=== PATIENT | male | born 1985 | race Caucasian/White ===

== ENCOUNTER 2017-10-07 10:11 | Inpatient (IN) | payer OTHER, SELFPAY ==
[2017-10-07 10:23] VITALS: BMI 21.2
[2017-10-07] MEDS ORDERED: Sodium Chloride 0.9% 1,000 ML IV ONE (11:02)
[2017-10-07] MEDS ORDERED: Belladonna-Phenobarbital PO STA (11:02)
[2017-10-07] MEDS ORDERED: Aluminum Hydroxide/Magnesium Hydroxide Susp (30 mL) PO STA (11:02)
[2017-10-07] MEDS ORDERED: Iohexol 240 (50 ml) PO STA (11:02)
[2017-10-07 11:14] LABS: SQUAMOUS EPITHIAL 1 /hpf (0-5); URINE BACTERIA RARE (<OCC); URINE BILIRUBIN NEGATIVE (NEGATIVE); URINE BLOOD 1+ (NEGATIVE); URINE CLARITY Hazy (Clear); URINE COLOR Yellow (YELLOW); URINE GLUCOSE (UA) NORMAL (Normal); URINE NITRATE NEGATIVE (NEGATIVE); URINE PROTEIN 1+ mg/dL (NEGATIVE)
[2017-10-07 11:16] LABS: URINE LEUKOCYTE ESTERASE 1+ Leu/uL (Negative)
--- NOTE | 2017-10-07 11:16 | C.PDOC ---
History Of Present Illness 31yo male with history of HIV, PTSD and depression, presents to ED with complaints of abdominal pain for the past week which has been worsening. Patient states he has been having loose stools which appears to be blood tinged. He also reports a tactile fever and states he had episodes of delirium last week which has now resolved. Patient also states he has suicidal ideation but no plan at this moment; reports he attempted to strangle himself with a belt last week. Of note, patient has not taken his PTSD and depression medication for the past month as the program ([facility]) he got them through was not able to provide him with more. Time Seen by Provider: 10/07/17 10:54 Chief Complaint (Nursing): Abdominal Pain History Per: Patient History/Exam Limitations: no limitations Onset/Duration Of Symptoms: Days, Persistent Current Symptoms Are (Timing): Still Present Pain Scale Rating Of: 10 (07/18) Location Of Pain/Discomfort: Diffuse Quality Of Discomfort: "Pain" Associated Symptoms: Diarrhea Past Medical History Reviewed: Historical Data, Nursing Documentation, Vital Signs Vital Signs: Last Vital Signs Temp 99.1 F 10/07/17 14:23 Pulse 103 H 10/07/17 14:23 Resp 18 10/07/17 14:23 BP 105/64 10/07/17 14:23 Pulse Ox 100 10/07/17 14:23 - Medical History PMH: Anxiety, Depression, HIV, Post Traumatic Stress Disorder Denies: Diabetes, Hepatitis, HTN, Seizures, Sexually Transmitted Disease Surgical History: No Surg Hx - [facility] GROUP PSYCHOTHERAPY (07/02/17) INDIVIDUAL PSYCHOTHERAPY, COGNITIVE-BEHAVIORAL (07/02/17) INDIVIDUAL PSYCHOTHERAPY, SUPPORTIVE (07/02/17) Family History: States: No Known Family Hx - Social History Hx Alcohol Use: No Hx Substance Use: Yes (methamphetamine) - Immunization History Hx Tetanus Toxoid Vaccination: No Hx Influenza Vaccination: No Hx Pneumococcal Vaccination: No Review Of Systems Except As Marked, All Systems Reviewed And Found Negative. Constitutional: Positive for: Fever (tactile) Gastrointestinal: Positive for: Abdominal Pain, Diarrhea, Hematochezia. Negative for: Nausea, Vomiting Psych: Positive for: Suicidal ideation Physical Exam - Physical Exam Appears: Non-toxic, Other (uncomfortable) Neck: Supple Chest: Symmetrical Cardiovascular: Rhythm Regular Respiratory: Normal Breath Sounds Gastrointestinal/Abdominal: Soft, Tenderness (diffuse), Guarding Extremity: Normal ROM Neurological/Psych: Oriented x3, Normal Speech, Normal Cognition ED Course And Treatment - Laboratory Results Result Diagrams: 10/07/17 11:35 10/07/17 12:06 O2 Sat by Pulse Oximetry: 100 (RA) Pulse Ox Interpretation: Normal Medical Decision Making Medical Decision Making: Impression: Abdominal pain x 2 weeks Plan: -- Labs -- CT Abdomen w/ PO & IV contrast -- Maalox 30ml PO -- 1 tab PO -- Pepcid 20mg IVP -- Toradol 30mg IVP -- Morphine 2mg IVP -- IV Fluids Time: 1158 Crisis evaluation ordered Time: 1300 XR Abdomen IMPRESSION: No infiltrate. Stool retention.. No evidence of mechanical bowel obstruction. Disposition Counseled Patient/Family Regarding: Studies Performed, Diagnosis - Disposition Disposition: HOSPITALIZED Disposition Time: 15:03 Condition: GUARDED Forms: [facility] (Russian) - Clinical Impression Clinical Impression: Colitis, Suicidal ideations, HIV disease - Scribe Statement The provider has reviewed the documentation as recorded by the Adelita Davis Provider Attestation: All medical record entries made by the Adelita were at my direction and personally dictated by me. I have reviewed the chart and agree that the record accurately reflects my personal performance of the history, physical exam, medical decision making, and the department course for this patient. I have also personally directed, reviewed, and agree with the discharge instructions and disposition. Decision To Admit - Pt Status Changed To: Hospital Disposition Of: Inpatient - Admit Certification Admit to Inpatient:: After my assessment, the patient will require hospitalization for at least two midnights. This is because of the severity of symptoms shown, intensity of services needed, and/or the medical risk in this patient being treated as an outpatient. - InPatient: Physician Admission Certification:: colitis, needs IV anbx, also SI - . Bed Request Type: Regular Patient Diagnosis: Colitis, Suicidal ideations, HIV disease
[2017-10-07 11:25] LABS: BARBITURATES, UR NEGATIVE (NEGATIVE); BENZODIAZEPINES, UR NEGATIVE (NEGATIVE); OPIATES, UR NEGATIVE (NEGATIVE); PHENCYCLIDINE, UR NEGATIVE (NEGATIVE)
[2017-10-07 11:46] LABS: BASO % 0.3 % (0.0-2.0); EOS % 0.2 % (0.0-4.0); LYMPH # 1.3 K/uL (1.0-4.3); LYMPH % 8.8 % (20.0-40.0); MEAN CELL VOLUME 91.9 fL (80.0-94.0); MEAN CORPUSCULAR HEMOGLOBIN 31.7 pg (27.0-31.0); MEAN CORPUSCULAR HGB CONC 34.5 g/dL (33.0-37.0); MEAN PLATELET VOLUME 9.4 fL (7.2-11.7); MONO # 1.4 K/uL (0.0-0.8); MONO % 10.2 % (0.0-10.0); NEUT # 11.4 K/uL (1.8-7.0); NEUT % 80.5 % (50.0-75.0); PLATELET COUNT 309 K/uL (130-400); RBC 4.74 Mil/uL (4.40-5.90); RED CELL DISTRIBUTION WIDTH 12.5 % (11.5-14.5)
[2017-10-07 11:50] LABS: WHITE BLOOD COUNT 14.2 K/uL (4.8-10.8)
[2017-10-07] MEDS ORDERED: Aluminum Hydroxide/Magnesium Hydroxide Susp (30 mL) ONE (11:59)
[2017-10-07] MEDS ORDERED: Iohexol 240 (50 ml) ONE (11:59)
[2017-10-07] MEDS ORDERED: Sodium Chloride 0.9% 1,000 ML ONE ×2 (11:59→18:27)
[2017-10-07] MEDS ORDERED: Morphine 4 MG/ML VIAL ONE (11:59)
[2017-10-07] MEDS ORDERED: Belladonna-Phenobarbital ONE (12:01)
[2017-10-07 12:25] LABS: ALBUMIN 3.6 g/dL (3.5-5.0); ALT/SGPT 15 U/L (21-72); AST/SGOT 20 U/L (17-59); BLOOD UREA NITROGEN 9 mg/dL (9-20); CALCIUM 7.8 mg/dl (8.6-10.4); GFR AFRICAN-AMERICAN > 60; GFR NON-AFRICAN AMERICAN > 60; LIPASE 111 U/L (23-300)
[2017-10-07 12:27] LABS: BANDS 2 % (0-2); LYMPHOCYTE 8 % (20-40); MONOCYTE 6 % (0-10); NEUTROPHIL 84 % (50-75); PLATELET ESTIMATE NORMAL (NORMAL); TOTAL CELLS COUNTED 100
--- NOTE | 2017-10-07 13:02 | RAD ---
PROCEDURE: Radiographs of the chest and abdomen (obstructive series) HISTORY: abd pain COMPARISON: No prior. TECHNIQUE: AP radiograph of the chest, with upright and supine radiographs of the abdomen. FINDINGS: CHEST: Lungs: Clear. Cardiovascular: Normal size heart. No pulmonary vascular congestion. Pleura: No pleural fluid. No pneumothorax. Other findings: None. ABDOMEN AND PELVIS: Bowel: Stool retention.. No evidence of mechanical obstruction. Free air: None. Bones: Lumbosacral level transitional elements with incomplete closure of apparently S1 Other findings: None. IMPRESSION: No infiltrate. Stool retention.. No evidence of mechanical bowel obstruction.
[2017-10-07] MEDS ORDERED: Iodixanol 320 MG/ML 100 ML BOTTLE IV ONE (13:33)
--- NOTE | 2017-10-07 14:51 | CT ---
PROCEDURE: CT Abdomen and Pelvis with oral and IV contrast. HISTORY: abd pain COMPARISON: Obstructive series performed 10/07/17 TECHNIQUE: Contiguous axial images of the abdomen and pelvis. Oral and IV contrast was administered. Coronal and Sagittal reformats generated and reviewed. Contrast dose: 100 cc Visipaque 320 Radiation dose: Total exam DLP = 213.12 MGy-cm. This CT exam was performed using one or more of the following dose reduction techniques: Automated exposure control, adjustment of the mA and/or kV according to patient size, and/or use of iterative reconstruction technique. FINDINGS: LOWER THORAX: No visible consolidation, pleural effusion, or pneumothorax. LIVER: Unremarkable. GALLBLADDER AND BILE DUCTS: Unremarkable. PANCREAS: Unremarkable. SPLEEN: Unremarkable. ADRENALS: Unremarkable. KIDNEYS AND URETERS: The kidneys enhance symmetrically. No hydronephrosis or obstructing renal calculus. 7 mm too small to characterize right renal hypodensity, statistically likely a cyst. BLADDER: The urinary bladder appears unremarkable. REPRODUCTIVE: Unremarkable. APPENDIX: The presumed appendix appears within normal limits of caliber. No secondary signs of acute appendicitis. BOWEL: The stomach is nondistended. No evidence of small-bowel obstruction. Marked wall thickening of the rectosigmoid colon worrisome for colitis (i.e. infectious, inflammatory, ischemic). PERITONEUM: No significant free fluid. No definite free air. LYMPH NODES: No bulky lymphadenopathy identified. VASCULATURE: No aortic aneurysm. BONES: No acute osseous abnormality is detected. OTHER FINDINGS: None. IMPRESSION: Marked wall thickening of the rectosigmoid colon worrisome for colitis (i.e. infectious, inflammatory, ischemic). 7 mm too small to characterize right renal hypodensity, statistically likely a cyst.
[2017-10-07] MEDS ORDERED: metroNIDAZOLE IV 500 mg/100 ml 500 MG/100 ML BAG IVPB ONE (14:54)
[2017-10-07] MEDS ORDERED: cefTRIAXone IV 1 gm in Dextros 50 ML IVPB ONE (14:54)
[2017-10-07] MEDS ORDERED: Ciprofloxacin 400mg/200ml D5W 400 MG/200 ML BAG IVPB STA (14:54)
[2017-10-07] MEDS ORDERED: Ciprofloxacin 400mg/200ml D5W 400 MG/200 ML BAG IVPB ONE (15:28)
[2017-10-07] MEDS ORDERED: metroNIDAZOLE IV 500 mg/100 ml 500 MG/100 ML BAG ONE (16:40)
--- NOTE | 2017-10-07 18:15 | CP.PCM.HP ---
History of Present Illness - History of Present Illness History of Present Illness: Patient was seen and examined at approximately 4:30 PM in the ED Bed 4. Patient is currently a Full code status at this time. His emergency contact is his sister Isabelle Loya. She can be reached at [phone] CC: abdominal pain with diarrhea HPI: 31 year old male with past medical history significant for HIV (diagnosed in 2013), Hx of suicidal ideations with a plan, PTSD, Depression and anxiety presents with concerns of abdominal pain which he has been experiencing for the past 7 days. Patient states that the pain has been accompanied with watery diarrhea as well. He states that the stool is yellowish-brown in nature. He states that yesterday, he noticed what appeared to be blood in the toilet bowl. He was concerned that his diarrhea symptoms did not hillary, and thus he came in to be seen. Patient states that he has been eating foods at home. He states the foods have been mostly oily, but he has been able to tolerate a diet. He specifically denies eating any new foods or taking any new medications in the days leading up to the beginning of his symptoms. He admits to a subjective fever on one occasion. He denies nausea, vomiting, chest pain, constipation, headaches, urinary urgency, dysuria, hematuria, urinary hesitancy or paresthesias, recent travel outside the country or recent exposure to sick contacts at this time. Of additional note, patient expressed wanting to harm himself. Patient states that he does not have a plan at the moment. He has a history of attempting suicide by siding down 15 floors of a banister on one attempt. He mentioned trying to choke himself on another attempt. PMHx- see above PSHx- denies Fam Hx- Mom has high cholesterol Meds- On Stribild ( antiretrovirals) ; Was previously taking Zoloft and gabapentin through the live[facility] in treatment center that he was attending Social- smokes 10 cigarettes a day for 11 years ( not interested in quitting); admits to using methamphetamines; rare alcohol use Allergies- NKDA PMD- None Present on Admission - Present on Admission Any Indicators Present on Admission: No Review of Systems - Constitutional Constitutional: Fever. absent: Headache - EENT Eyes: absent: Blurred Vision, Change in Vision Ears: absent: Ear Discharge, Ear Pain Nose/Mouth/Throat: absent: Nasal Congestion - Cardiovascular Cardiovascular: absent: Chest Pain, Diaphoresis, Dyspnea - Respiratory Respiratory: absent: Cough, Dyspnea - Gastrointestinal Gastrointestinal: Diarrhea, Hematochezia. absent: Bloating, Nausea, Vomiting - Genitourinary Genitourinary: absent: Change in Urinary Stream, Difficulty Urinating, Dysuria, Hematuria, Urinary Frequency, Urinary Urgency - Musculoskeletal Musculoskeletal: absent: Back Pain, Numbness - Integumentary Integumentary: absent: Change in Hair, Dry Skin - Neurological Neurological: absent: Abnormal Hearing, Dizziness, Tingling, Weakness - Psychiatric Psychiatric: Depression, Suicidal Ideation - Hematologic/Lymphatic Hematologic: absent: Easy Bleeding, Easy Bruising Past Patient History - Past Social History Smoking Status: Heavy Smoker > 10 Cigarettes Daily Alcohol: Occasional Drugs: Methamphetamine Home Situation {Lives}: With Family - CARDIAC Hx Hypertension: No - PULMONARY Hx Tuberculosis: No - NEUROLOGICAL Hx Seizures: No - HEMATOLOGICAL/ONCOLOGICAL Hx Human Immunodeficiency Virus (HIV): Yes - GENITOURINARY/GYNECOLOGICAL Hx Sexually Transmitted Disorders: No - PSYCHIATRIC Hx Anxiety: Yes Hx Depression: Yes Hx Post Traumatic Stress Disorder: Yes Hx Substance Use: Yes (methamphetamine) - SURGICAL HISTORY Hx Surgeries: No - ANESTHESIA Hx Anesthesia: No Meds Allergies/Adverse Reactions: Allergies Allergy/AdvReac Type Severity Reaction Status Date / Time No Known Allergies Allergy Verified 10/07/17 10:21 Physical Exam - Constitutional Appears: Non-toxic, No Acute Distress, Younger Than Stated Age (appears younger ) - Head Exam Head Exam: ATRAUMATIC, NORMAL INSPECTION, NORMOCEPHALIC - Eye Exam Eye Exam: EOMI, Normal appearance, PERRL Pupil Exam: PERRL - ENT Exam ENT Exam: Mucous Membranes Moist - Neck Exam Neck exam: Positive for: Full Rom - Respiratory Exam Respiratory Exam: Clear to Auscultation Bilateral, NORMAL BREATHING PATTERN. absent: Wheezes - Cardiovascular Exam Cardiovascular Exam: REGULAR RHYTHM, +S1, +S2. absent: Tachycardia - GI/Abdominal Exam GI & Abdominal Exam: Normal Bowel Sounds, Soft, Tenderness (diffuse lower quadrants). absent: Distended, Firm, Guarding - Rectal Exam Rectal Exam: Deferred Additional comments: Patient declined at this time. - Extremities Exam Extremities exam: Positive for: full ROM, normal capillary refill - Back Exam Back exam: FULL ROM, NORMAL INSPECTION - Neurological Exam Neurological exam: Alert, CN II-XII Intact, Oriented x3 - Psychiatric Exam Psychiatric exam: Normal Affect, Normal Mood, Suicidal Ideation - Skin Skin Exam: Dry, Intact, Normal Color, Warm Results - Vital Signs Recent Vital Signs: Last Vital Signs Temp 99.5 F 10/07/17 17:37 Pulse 95 H 10/07/17 17:37 Resp 18 10/07/17 17:37 BP 100/61 10/07/17 17:37 Pulse Ox 98 10/07/17 17:37 - Labs Result Diagrams: 10/07/17 11:35 10/07/17 12:06 Labs: Laboratory Results - last 24 hr 10/07/17 10/07/17 10/07/17 10:50 10:50 11:35 WBC 14.2 H D RBC 4.74 Hgb 15.0 Hct 43.6 MCV 91.9 MCH 31.7 H MCHC 34.5 RDW 12.5 Plt Count 309 MPV 9.4 Neut % (Auto) 80.5 H Lymph % (Auto) 8.8 L Crowley % (Auto) 10.2 H Eos % (Auto) 0.2 Baso % (Auto) 0.3 Neut # 11.4 H Lymph # 1.3 Crowley # 1.4 H Eos # 0.0 Baso # 0.0 Neutrophils % (Manual) 84 H Band Neutrophils % 2 Lymphocytes % (Manual) 8 L Monocytes % (Manual) 6 Platelet Estimate Normal RBC Morphology Normal Sodium Potassium Chloride Carbon Dioxide Anion Gap BUN Creatinine Est GFR ( Amer) Est GFR (Non-Af Amer) Random Glucose Calcium Total Bilirubin AST ALT Alkaline Phosphatase Total Protein Albumin Globulin Albumin/Globulin Ratio Lipase Urine Color Yellow Urine Clarity Hazy Urine pH 5.0 Ur Specific [place] 1.029 Urine Protein 1+ H Urine Glucose (UA) Normal Urine Ketones Negative Urine Blood 1+ H Urine Nitrate Negative Urine Bilirubin Negative Urine Urobilinogen 2.0 Ur Leukocyte Esterase 1+ H Urine WBC (Auto) 22 H Urine RBC (Auto) 21 H Ur Squamous Epith Cells 1 Urine Bacteria Rare Urine Opiates Screen Negative Urine Methadone Screen Negative Ur Barbiturates Screen Negative Ur Phencyclidine Scrn Negative Ur Amphetamines Screen Positive H U Benzodiazepines Scrn Negative U Oth Cocaine Metabols Negative U Cannabinoids Screen Negative Alcohol, Quantitative 10/07/17 12:06 WBC RBC Hgb Hct MCV MCH MCHC RDW Plt Count MPV Neut % (Auto) Lymph % (Auto) Crow[place] % (Auto) Eos % (Auto) Baso % (Auto) Neut # Lymph # [place] # Eos # Baso # Neutrophils % (Manual) Band Neutrophils % Lymphocytes % (Manual) Monocytes % (Manual) Platelet Estimate RBC Morphology Sodium 132 Potassium 4.2 Chloride 99 Carbon Dioxide 25 Anion Gap 13 BUN 9 Creatinine 0.8 Est GFR ( Amer) > 60 Est GFR (Non-Af Amer) > 60 Random Glucose 101 Calcium 7.8 L Total Bilirubin 0.4 AST 20 ALT 15 L D Alkaline Phosphatase 65 Total Protein 7.3 Albumin 3.6 Globulin 3.7 Albumin/Globulin Ratio 1.0 Lipase 111 Urine Color Urine Clarity Urine pH Ur Specific [place] Urine Protein Urine Glucose (UA) Urine Ketones Urine Blood Urine Nitrate Urine Bilirubin Urine Urobilinogen Ur Leukocyte Esterase Urine WBC (Auto) Urine RBC (Auto) Ur Squamous Epith Cells Urine Bacteria Urine Opiates Screen Urine Methadone Screen Ur Barbiturates Screen Ur Phencyclidine Scrn Ur Amphetamines Screen U Benzodiazepines Scrn U Oth Cocaine Metabols U Cannabinoids Screen Alcohol, Quantitative < 10 Assessment & Plan (1) Colitis Assessment and Plan: Fever of 100.9 on admission ( Tylenol PRN) Leukocytosis 14.2 CT imaging - marked wall thickening of rectosigmoid colon indicative of colitis Likely due to presumed infectious diarrhea On Cipro and Flagyl On Florastor F/U stool studies: Cryptosporidium, Giardia, Stool electrolytes; AM labs NPO, N/S @ 100 mls/hr Consult to be placed to GI Pain Meds administered in ER. Will start Toradol 15 mg Q6 PRN Cont to monitor Status: Acute (2) Diarrhea Assessment and Plan: F/U studies as mentioned above Hematochezia- F/U stool occult Patient declined a rectal exam at this time. He will reconsider in the morning. F/U Status: Acute (3) HIV disease Assessment and Plan: F/U CD4 counts Charlene states that he has had blood work testing in June of 2017 and was told that his counts were stable Will start on Emtricitabine/Tenofovir F/U Status: Chronic (4) Suicidal ideation Assessment and Plan: 1:1 sitter F/U Psych recommendations Counseled at length Status: Acute (5) Methamphetamine use disorder, severe Assessment and Plan: UDS positve Counseling at this time F/U Psych recommendations. Patient may need further outpatient management services once medically cleared Status: Acute (6) Prophylactic measure Assessment and Plan: PPI 40 mg PO daily SCDs at this time Status: Acute
[2017-10-07] MEDS ORDERED: Sodium Chloride 0.9% 0 ML IV ONE (18:27)
[2017-10-07] MEDS: Sodium Chloride 0.9% 1,000 ML IV SCH (18:29)
[2017-10-08] MEDS: metroNIDAZOLE IV 250mg/50 ml 250 MG/50 ML BAG IVPB SCH ×3 (01:00→16:46)
[2017-10-08] MEDS: Sodium Chloride 0.9% 1,000 ML IV SCH ×3 (04:30→16:44)
[2017-10-08] MEDS: Ciprofloxacin 400mg/200ml D5W 400 MG/200 ML BAG IVPB SCH ×2 (06:00→18:43)
--- NOTE | 2017-10-08 07:52 | CP.PCM.PN ---
<Candi Warner - Last Filed: 10/08/17 13:30> Subjective - Date & Time of Evaluation Date of Evaluation: 10/08/17 Time of Evaluation: 07:52 - Subjective Subjective: Medicine Progress Note for Dr. Huitron's service Patient was seen and examined at bedside in no acute distress. Patient laying comfortably in bed. He reports no longer having abdominal pain or diarrhea. His last episode of diarrhea was in the ED. Patient says he is "feeling much better ", whoever still feeling depressed. Patient is requesting to eat. Patient denies chest pain, abdominal pain, nausea, vomiting, fevers, headaches, back pain, leg pain, hallucinations, and SI/HI. Objective - Vital Signs/Intake and Output Vital Signs (last 24 hours): Temp Pulse Resp BP Pulse Ox 98.5 F 20 L 100 H 98/59 L 99 10/08/17 07:28 10/08/17 07:28 10/08/17 07:28 10/08/17 07:28 10/08/17 02:52 Intake and Output: 10/08/17 10/08/17 06:59 18:59 Intake Total 800 Balance 800 - Medications Medications: Current Medications Acetaminophen (Tylenol 325mg Tab) 650 mg PO Q6 PRN PRN Reason: Fever >100.4 F Emtricitabine/Tenofovir (Truvada 200 Mg-300 Mg) 1 tab PO DAILY [facility] Sodium Chloride (Sodium Chloride 0.9%) 1,000 mls @ 100 mls/hr IV .Q10H [facility] Last Admin: 10/08/17 04:30 Dose: 100 mls/hr Ciprofloxacin (Cipro 400mg/200ml Dsw) 400 mg in 200 mls @ 133 mls/hr IVPB Q12H [facility] Last Admin: 10/08/17 06:00 Dose: 133 mls/hr Metronidazole (Flagyl) 250 mg in 50 mls @ 100 mls/hr IVPB Q8H [facility] Stop: 10/13/17 01:01 Last Admin: 10/08/17 01:00 Dose: 100 mls/hr Ketorolac Tromethamine (Toradol) 15 mg IVP Q6 PRN PRN Reason: Pain, moderate (4-7) Pantoprazole Sodium (Protonix Ec Tab) 40 mg PO DAILY [facility] Pneumococcal Polyvalent Vaccine (Pneumovax 23 Vaccine) 0.5 ml IM .ONCE ONE Stop: 10/09/17 10:01 Saccharomyces Boulardii (Florastor) 250 mg PO BID WILLIAM - Labs Labs: 10/07/17 11:35 10/07/17 12:06 - Constitutional Appears: No Acute Distress - Head Exam Head Exam: ATRAUMATIC, NORMAL INSPECTION, NORMOCEPHALIC - Eye Exam Eye Exam: EOMI, Normal appearance - ENT Exam ENT Exam: Mucous Membranes Moist - Respiratory Exam Respiratory Exam: Clear to Ausculation Bilateral, NORMAL BREATHING PATTERN. absent: Rales, Rhonchi, Wheezes, Respiratory Distress - Cardiovascular Exam Cardiovascular Exam: REGULAR RHYTHM, +S1, +S2 - GI/Abdominal Exam GI & Abdominal Exam: Soft, Normal Bowel Sounds. absent: Distended, Firm, Tenderness, Mass - Extremities Exam Extremities Exam: Normal Inspection. absent: Pedal Edema, Tenderness - Neurological Exam Neurological Exam: Alert, Awake, Oriented x3 - Psychiatric Exam Psychiatric exam: Depressed, Normal Affect - Skin Skin Exam: Dry, Intact, Normal Color, Warm Assessment and Plan - Assessment and Plan (Free Text) Plan: Assessment & Plan (1) Colitis Assessment and Plan: * Currently afebrile * Fever of 100.9 on admission ( Tylenol PRN) * Pain Meds administered in ER. Will start Toradol 15 mg Q6 PRN * Leukocytosis 14.2--> resolved, 5.7, no bandemia * CT imaging - marked wall thickening of rectosigmoid colon indicative of colitis * Likely due to presumed infectious diarrhea * F/U stool studies: Cryptosporidium, Giardia, Stool electrolytes; AM labs * leukoctyes negative * C diff negative * Advanced diet to CLD * Continue to monitor * Medications * Continue Cipro and Flagyl * Continue Florastor (2) Diarrhea Assessment and Plan: * Resolved * F/U stool studies: Cryptosporidium, Giardia, Stool electrolytes; AM labs * leukoctyes negative * C diff negative * Hematochezia- F/U stool occult * Patient declined a rectal exam at admission (3) UTI Assessment and Plan: * UA: 1+ protein, 1+ blood, 1+ LE, WBC 22, RBC 21 * Urine Cx: + lactobacillus * ID consulted, Dr. Villalpando, help appreciated (4) HIV disease Assessment and Plan: * F/U CD4 counts * Patient states that he has had blood work testing in June of 2017 and was told that his counts were stable * Will start on Emtricitabine/Tenofovir * ID consulted, Dr. Villalpando, help appreciated (5) Suicidal ideation Assessment and Plan: * 1:1 sitter * F/U Psych recommendations * Counseled at length (6) Methamphetamine use disorder, severe Assessment and Plan: * UDS positve * Counseling at this time * F/U Psych recommendations. Patient may need further outpatient management services once medically cleared (7) Prophylactic measure Assessment and Plan: * PPI 40 mg PO daily * SCDs at this time <Israel Huitron - Last Filed: 10/08/17 19:21> Objective - Vital Signs/Intake and Output Vital Signs (last 24 hours): Temp Pulse Resp BP Pulse Ox 98.4 F 79 20 100/64 100 10/08/17 16:00 10/08/17 16:00 10/08/17 16:00 10/08/17 16:00 10/08/17 16:00 Intake and Output: 10/08/17 10/09/17 18:59 06:59 Intake Total 800 Balance 800 - Medications Medications: Current Medications Acetaminophen (Tylenol 325mg Tab) 650 mg PO Q6 PRN PRN Reason: Fever >100.4 F Emtricitabine/Tenofovir (Truvada 200 Mg-300 Mg) 1 tab PO DAILY [facility] Last Admin: 10/08/17 10:52 Dose: 1 tab Escitalopram Oxalate (Lexapro) 5 mg PO DAILY [facility] Last Admin: 10/08/17 13:58 Dose: 5 mg Sodium Chloride (Sodium Chloride 0.9%) 1,000 mls @ 100 mls/hr IV .Q10H [facility] Last Admin: 10/08/17 16:44 Dose: 100 mls/hr Ciprofloxacin (Cipro 400mg/200ml Dsw) 400 mg in 200 mls @ 133 mls/hr IVPB Q12H [facility] Last Admin: 10/08/17 18:43 Dose: 133 mls/hr Metronidazole (Flagyl) 250 mg in 50 mls @ 100 mls/hr IVPB Q8H [facility] Stop: 10/13/17 01:01 Last Admin: 10/08/17 16:46 Dose: 100 mls/hr Ketorolac Tromethamine (Toradol) 15 mg IVP Q6 PRN PRN Reason: Pain, moderate (4-7) Pantoprazole Sodium (Protonix Ec Tab) 40 mg PO DAILY [facility] Last Admin: 10/08/17 10:52 Dose: 40 mg Pneumococcal Polyvalent Vaccine (Pneumovax 23 Vaccine) 0.5 ml IM .ONCE ONE Stop: 10/09/17 10:01 Quetiapine Fumarate (Seroquel) [address] [facility] Saccharomyces Boulardii (Florastor) 250 mg PO BID [facility] Last Admin: 10/08/17 17:23 Dose: 250 mg - Labs Labs: 10/08/17 08:33 10/08/17 08:33 Attending/Attestation - Attestation I have personally seen and examined this patient.: Yes I have fully participated in the care of the patient.: Yes I have reviewed all pertinent clinical information, including history, physical exam and plan: Yes
[2017-10-08 08:46] LABS: BASO % 0.2 % (0.0-2.0); EOS % 0.4 % (0.0-4.0); HEMOGLOBIN 13.3 g/dL (12.0-18.0); LYMPH # 1.2 K/uL (1.0-4.3); LYMPH % 21.6 % (20.0-40.0); MEAN CELL VOLUME 91.5 fL (80.0-94.0); MEAN CORPUSCULAR HEMOGLOBIN 31.5 pg (27.0-31.0); MEAN CORPUSCULAR HGB CONC 34.5 g/dL (33.0-37.0); MEAN PLATELET VOLUME 9.4 fL (7.2-11.7); MONO # 0.6 K/uL (0.0-0.8); MONO % 10.7 % (0.0-10.0); NEUT # 3.8 K/uL (1.8-7.0); NEUT % 67.1 % (50.0-75.0); RBC 4.21 Mil/uL (4.40-5.90); RED CELL DISTRIBUTION WIDTH 12.2 % (11.5-14.5)
[2017-10-08 08:50] LABS: WHITE BLOOD COUNT 5.7 K/uL (4.8-10.8)
[2017-10-08 09:14] LABS: ALB/GLOB RATIO 0.9 (1.0-2.1); ALT/SGPT 18 U/L (21-72); AST/SGOT 16 U/L (17-59); BLOOD UREA NITROGEN 5 mg/dL (9-20); CALCIUM 7.8 mg/dl (8.6-10.4); GFR AFRICAN-AMERICAN > 60; GFR NON-AFRICAN AMERICAN > 60
[2017-10-08] MEDS: Saccharomyces Boulardi 250 mg Cap PO SCH ×2 (10:52→17:23)
[2017-10-08] MEDS: Emtricitabine-Tenofovir 200 mg-300 mg Tab PO SCH (10:52)
[2017-10-08] MEDS: Pantoprazole 40 mg EC Tab PO SCH (10:52)
[2017-10-08] MEDS ORDERED: Potassium Chloride 20 mEq ER Tab PO ONE (11:00)
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
[2017-10-09] MEDS: metroNIDAZOLE IV 250mg/50 ml 250 MG/50 ML BAG IVPB SCH ×3 (00:27→18:00)
[2017-10-09] MEDS: Sodium Chloride 0.9% 1,000 ML IV SCH ×4 (06:18→22:23)
[2017-10-09] MEDS: Ciprofloxacin 400mg/200ml D5W 400 MG/200 ML BAG IVPB SCH ×2 (06:19→18:43)
--- NOTE | 2017-10-09 06:19 | CON ---
DATE: HISTORY OF PRESENT ILLNESS: The patient is a 31-year-old male. He has a history of HIV disease diagnosed in 2013. He was admitted with suicidal ideation with a plan, and he is very depressed and anxious. He is concerned about abdominal pain. He has been having diarrhea for a week, watery diarrhea. He also noticed some blood today in the toilet bowl, and he is very disturbed about it. He has not been able to tolerate diet. He has confrontation with his family and he is a full code. He was seen by psychiatrist also. He has been on medications; he says he takes Stribild and he gave that medication to the pharmacy, he says. He denies any nausea, vomiting. No chest pain. Does have some abdominal pain. Denies any urinary problems. Denies any recent travel. Nobody else is sick at home. FAMILY HISTORY: Significant for mother having high cholesterol. ALLERGIES: HE IS NOT ALLERGIC TO ANY MEDICINES. SOCIAL HISTORY: He smokes 10 cigarettes a day, and has been doing that for 11 years. Admits to using methamphetamines and rare alcohol use. REVIEW OF SYSTEMS: He complained of fever. He denies any headache. Denies any ear, nose, throat problems. No chest pain. No shortness of breath. Does complain of diarrhea. Denies any bloating, nausea, or vomiting. Denies any urinary symptoms. Denies any joint pains. Denies any skin problems. No neurological problems. He has psych issues of depression and suicidal ideation. He was on one-to-one when I saw him. PAST MEDICAL HISTORY: Significant for alcohol use, heavy smoking, and drug abuse with methamphetamines. He has no diabetes. No hypertension. No TB. He does suffer from HIV disease. Denies any STDs. He does not know his HIV CD4 count. He did say he gave his stool for testing. PHYSICAL EXAMINATION: VITAL SIGNS: T-max was 98.4, pulse was 79, blood pressure 100/64, respirations are 20. HEENT: Head is atraumatic, normocephalic. Pupils are reacting to light. NECK: Supple. LUNGS: Clear. No crackles or rales present. HEART: S1, S2 is regular. ABDOMEN: Soft. Bowel sounds were gurgling and were hyperactive. EXTREMITIES: No edema. LABORATORY DATA: Labs are noted. Labs show white count is 5.7, hemoglobin 13.3. He did come with a white count of 14.2. Sodium is 136, potassium 3.5, BUN 11, creatinine 0.8. Liver enzymes are not elevated, actually they are low. Urine showed ketones were negative, there were some blood, leukocytes, wbc's 20-2, rbc's 21. Stool occult, wbc's was negative. His amphetamine test came out positive. C. difficile antigen and toxin was negative. CURRENT MEDICATIONS: He is on Cipro. They have started Truvada, Lexapro, Toradol, Flagyl, Protonix. So, he is on Flagyl and Cipro at this time. IMPRESSION AND PLAN: Diarrhea in an HIV patient. We can ask for stool studies for Cryptosporidium, Isospora, and microsporidium also. Stool studies have been ordered and we will follow. We will continue with Cipro and Flagyl at this time and order his CD4 and CD8 counts. Patient can take his Stribild, his previous medication, as he says he has given that to the pharmacy. So, we will request that and will follow stool studies and we will follow with you. Bolivar Villalpando MD
[2017-10-09 07:51] LABS: BASO % 0.7 % (0.0-2.0); EOS # 0.1 K/uL (0.0-0.7); EOS % 1.6 % (0.0-4.0); HEMOGLOBIN 13.4 g/dL (12.0-18.0); LYMPH # 1.2 K/uL (1.0-4.3); LYMPH % 35.7 % (20.0-40.0); MEAN CELL VOLUME 91.5 fL (80.0-94.0); MEAN PLATELET VOLUME 8.8 fL (7.2-11.7); MONO # 0.4 K/uL (0.0-0.8); MONO % 11.8 % (0.0-10.0); NEUT # 1.7 K/uL (1.8-7.0); NEUT % 50.2 % (50.0-75.0); RBC 4.19 Mil/uL (4.40-5.90); RED CELL DISTRIBUTION WIDTH 12.2 % (11.5-14.5); WHITE BLOOD COUNT 3.3 K/uL (4.8-10.8)
[2017-10-09 08:22] LABS: ALBUMIN 2.8 g/dL (3.5-5.0); ALT/SGPT 19 U/L (21-72); AST/SGOT 14 U/L (17-59); BLOOD UREA NITROGEN 3 mg/dL (9-20); CALCIUM 8.2 mg/dl (8.6-10.4); GFR AFRICAN-AMERICAN > 60; GFR NON-AFRICAN AMERICAN > 60
[2017-10-09 09:05] VITALS: RESP 20
[2017-10-09] MEDS ORDERED: Influenza Vaccine 60 mcg/0.5 mL SYR (4YR UP) IM ONE (10:00)
[2017-10-09] MEDS ORDERED: Pneumococcal 23-Valent Vaccine IM ONE (10:00)
--- NOTE | 2017-10-09 11:01 | CP.PCM.PN ---
Subjective - Date & Time of Evaluation Date of Evaluation: 10/09/17 Time of Evaluation: 11:00 - Subjective Subjective: Medicine Progress Noes for Dr. Huitron Patient was seen and examined at bedside in no acute distress. Patient reports feeling better today. Patient had about 5 episodes of soft stool yesterday afternoon, but denies pain. Patient denies chest pain, abdominal pain, nausea, vomiting, fevers, headaches, and dizziness. Objective - Vital Signs/Intake and Output Vital Signs (last 24 hours): Temp Pulse Resp BP Pulse Ox 98.5 F 78 20 98/65 L 98 10/09/17 08:00 10/09/17 08:00 10/09/17 08:00 10/09/17 08:00 10/09/17 08:00 Intake and Output: 10/09/17 10/09/17 06:59 18:59 Intake Total 1450 Balance 1450 - Medications Medications: Current Medications Acetaminophen (Tylenol 325mg Tab) 650 mg PO Q6 PRN PRN Reason: Fever >100.4 F Emtricitabine/Tenofovir (Truvada 200 Mg-300 Mg) 1 tab PO DAILY [facility] Last Admin: 10/08/17 10:52 Dose: 1 tab Escitalopram Oxalate (Lexapro) 5 mg PO DAILY [facility] Last Admin: 10/08/17 13:58 Dose: 5 mg Sodium Chloride (Sodium Chloride 0.9%) 1,000 mls @ 100 mls/hr IV .Q10H [facility] Last Admin: 10/09/17 06:18 Dose: 100 mls/hr Ciprofloxacin (Cipro 400mg/200ml Dsw) 400 mg in 200 mls @ 133 mls/hr IVPB Q12H [facility] Last Admin: 10/09/17 06:19 Dose: 133 mls/hr Metronidazole (Flagyl) 250 mg in 50 mls @ 100 mls/hr IVPB Q8H [facility] Stop: 10/13/17 01:01 Last Admin: 10/09/17 08:44 Dose: 100 mls/hr Ketorolac Tromethamine (Toradol) 15 mg IVP Q6 PRN PRN Reason: Pain, moderate (4-7) Pantoprazole Sodium (Protonix Ec Tab) 40 mg PO DAILY [facility] Last Admin: 10/08/17 10:52 Dose: 40 mg Quetiapine Fumarate (Seroquel) 50 mg PO HS [facility] Last Admin: 10/08/17 21:39 Dose: 50 mg Saccharomyces Boulardii (Florastor) 250 mg PO BID [facility] Last Admin: 10/08/17 17:23 Dose: 250 mg - Labs Labs: 10/09/17 07:33 10/09/17 07:33 - Additional Findings Additional findings: - Constitutional Appears: No Acute Distress - Head Exam Head Exam: ATRAUMATIC, NORMAL INSPECTION, NORMOCEPHALIC - Eye Exam Eye Exam: EOMI, Normal appearance - ENT Exam ENT Exam: Mucous Membranes Moist - Respiratory Exam Respiratory Exam: Clear to Ausculation Bilateral, NORMAL BREATHING PATTERN. absent: Rales, Rhonchi, Wheezes, Respiratory Distress - Cardiovascular Exam Cardiovascular Exam: REGULAR RHYTHM, +S1, +S2 - GI/Abdominal Exam GI & Abdominal Exam: Soft, Hyperactive Bowel Sounds. absent: Distended, Firm, Tenderness, Mass - Extremities Exam Extremities Exam: Normal Inspection. absent: Pedal Edema, Tenderness - Neurological Exam Neurological Exam: Alert, Awake, Oriented x3 - Psychiatric Exam Psychiatric exam: Depressed, Normal Affect - Skin Skin Exam: Dry, Intact, Normal Color, Warm Assessment and Plan - Assessment and Plan (Free Text) Plan: Assessment & Plan (1) Colitis Assessment and Plan: * Currently afebrile * Fever of 100.9 on admission ( Tylenol PRN) * Pain Meds administered in ER. Will start Toradol 15 mg Q6 PRN * Leukocytosis 14.2--> resolved, 5.7, no bandemia * CT imaging - marked wall thickening of rectosigmoid colon indicative of colitis * Likely due to presumed infectious diarrhea * F/U stool studies: Cryptosporidium, Giardia, Stool electrolytes; AM labs * leukoctyes negative * C diff negative * Advanced diet to regular * Continue to monitor * Medications * Continue Cipro and Flagyl * Continue Florastor (2) Diarrhea Assessment and Plan: * Resolved * F/U stool studies: Cryptosporidium, Giardia, Stool electrolytes; AM labs * leukoctyes negative * C diff negative * Hematochezia- F/U stool occult * Patient declined a rectal exam at admission (3) UTI Assessment and Plan: * UA: 1+ protein, 1+ blood, 1+ LE, WBC 22, RBC 21 * Urine Cx: + lactobacillus * ID consulted, Dr. Villalpando, help appreciated * Repeat Urine Cx: f/u results * consider medication based on repeat culture (4) HIV disease Assessment and Plan: * F/U CD4 counts * Patient states that he has had blood work testing in June of 2017 and was told that his counts were stable * Restart on Emtricitabine/Tenofovir * ID consulted, Dr. Villalpando, help appreciated (5) Suicidal ideation Assessment and Plan: * 1:1 sitter * F/U Psych recommendations * Counseled at length (6) Methamphetamine use disorder, severe Assessment and Plan: * UDS positive * Counseling at this time * F/U Psych recommendations. Patient may need further outpatient management services once medically cleared (7) Prophylactic measure Assessment and Plan: * PPI 40 mg PO daily * SCDs at this time
[2017-10-09] MEDS: Emtricitabine-Tenofovir 200 mg-300 mg Tab PO SCH (11:14)
[2017-10-09] MEDS: Pantoprazole 40 mg EC Tab PO SCH (11:15)
[2017-10-09] MEDS: Saccharomyces Boulardi 250 mg Cap PO SCH ×2 (11:16→18:36)
[2017-10-09 11:51] LABS: % CD4 (T HELPER CELL) 29 Percent (30-61); % CD8 (SUPPRESSOR T CELL) 57 Percent (12-42); ABSOLUTE CD4 CELLS 342 Cells/mcL (490-1740); ABSOLUTE CD8 CELLS 678 Cells/mcL (180-1170); ABSOLUTE LYMPHOCYTES 1192 Cells/mcL (850-3900)
[2017-10-09] MEDS: Elviteg/Cobi/Emtric/Tenofo Dis [Stribild Tablet] PO SCH (13:47)
--- NOTE | 2017-10-09 15:23 | PCM.PYCHPN ---
Psychiatric Progress Note - Psychiatric Progress Note Patient seen today, length of contact: 15 Patient Chief Complaint: "I am still depressed" Problems Identified/Issues Discussed: The pt is seen, chart reviewed, case discussed with staff. The pt is compliant with medications and reports no side-effects. Symptoms are improving but needs more time to stabilize. After care discussed, support and psychoeducation given. Pt's mother was seen visiting today. Pt denies suicidal thoughts. States he is feeling better and once he receives medical clearance would like to transfer to psychiatric care. Medical Problems: Colitis, HIV, diarrhea Diagnostic Results: Urine Cx: + lactobacillus C.Diff Ag and toxin: negative CD4 count: 342 L Medication Change: Yes (detox changes daily) Medical Record Reviewed: Yes Consults ordered or reviewed: Medicine consult- Dr. 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, appreciated- HIV associated colitis Mental Status Examination - Cognitive Function Orientation: Person, Place, Situation, Time - Mood Mood: Depressed, Anxious - Affect Affect: Constricted - Formal Thought Process Formal Thought Process: No Impairment - Suicidal Ideation Suicidal Ideation: No - Homicidal Ideation Homicidal Ideation: No Goal/Treatment Plan - Goal/Treatment Plan Need for Continued Stay: Remain at risks for inpatient hospitalization, Severe depression anxiety, Discharge may exacerbated symptoms, Severe functional impairment Progress Toward Problem(s) and Goals/Treatment Plan: Attend groups and activities Individual therapy for depression OK and CBT for methamphetamine use d/o Supportive therapy and psychoeducation Encourage compliance with meds and aftercare Refer to IOP Teach healthy lifestyle methods, i.e. diet, exercise, meditation As needed medications All risks, benefits and alternatives of the meds discussed, and the pt agreed and understood. Patient again encouraged to call inker and benefits officer to let the officer know the patient is in the hospital and find out if there is a warrant standing. Pt denies suicidal thoughts. States he is feeling better and once he receives medical clearance would like to transfer to psychiatric care, then will stay with his family. 15 min
[2017-10-09 16:46] VITALS: O2SAT 99
[2017-10-09 16:54] LABS: SOURCE STOOL
--- NOTE | 2017-10-09 20:33 | CP.PCM.PN ---
Subjective - Date & Time of Evaluation Date of Evaluation: 10/16/17 Time of Evaluation: 05:00 - Subjective Subjective: dictated Objective - Vital Signs/Intake and Output Vital Signs (last 24 hours): Temp Pulse Resp BP Pulse Ox 98.1 F 76 20 97/62 L 99 10/09/17 16:00 10/09/17 16:00 10/09/17 16:00 10/09/17 16:00 10/09/17 16:00 Intake and Output: 10/09/17 10/10/17 18:59 06:59 Output Total 1400 Balance -1400 - Medications Medications: Current Medications Acetaminophen (Tylenol 325mg Tab) 650 mg PO Q6 PRN PRN Reason: Fever >100.4 F Escitalopram Oxalate (Lexapro) 10 mg PO DAILY [facility] Home Med (Patient's Own Medication) 1 tab PO DAILY [facility] Last Admin: 10/09/17 13:47 Dose: 1 tab Sodium Chloride (Sodium Chloride 0.9%) 1,000 mls @ 100 mls/hr IV .Q10H [facility] Last Admin: 10/09/17 18:41 Dose: 100 mls/hr Ciprofloxacin (Cipro 400mg/200ml Dsw) 400 mg in 200 mls @ 133 mls/hr IVPB Q12H [facility] Last Admin: 10/09/17 18:43 Dose: 133 mls/hr Metronidazole (Flagyl) 250 mg in 50 mls @ 100 mls/hr IVPB Q8H [facility] Stop: 10/13/17 01:01 Last Admin: 10/09/17 18:00 Dose: 100 mls/hr Ketorolac Tromethamine (Toradol) 15 mg IVP Q6 PRN PRN Reason: Pain, moderate (4-7) Pantoprazole Sodium (Protonix Ec Tab) 40 mg PO DAILY [facility] Last Admin: 10/09/17 11:15 Dose: 40 mg Quetiapine Fumarate (Seroquel) 100 mg PO [facility] Saccharomyces Boulardii (Florastor) 250 mg PO BID [facility] Last Admin: 10/09/17 18:36 Dose: 250 mg - Labs Labs: 10/09/17 07:33 10/09/17 07:33
[2017-10-10] MEDS: metroNIDAZOLE IV 250mg/50 ml 250 MG/50 ML BAG IVPB SCH ×2 (00:02→10:17)
--- NOTE | 2017-10-10 01:43 | PN ---
DATE: SUBJECTIVE: He was seen today. He said he had no more BMs today. He was feeling little better, and he seems positive for life I guess, he got his HIV medicine. His diarrhea was little better. I have told to repeat UA and urine C and S, so that we can see if we need to treat that lactobacillus, which may just be incidental. PHYSICAL EXAMINATION: GENERAL: He remains frail. VITAL SIGNS: T-Max is 98.1, pulse 76, blood pressure 97/62, respirations are 20. HEENT: Head is atraumatic. Pupils are reacting to light. NECK: Supple. LUNGS: Clear. HEART: S1 and S2 is regular. ABDOMEN: Soft. Bowel sounds are still gurgling. EXTREMITIES: No edema. LABORATORY DATA: His white count became 3.3, hemoglobin 13.4, hematocrit 38.3, platelet count is 273 and sodium 135, potassium 3.8, chloride of 106, CO2 is 27, anion gap is 7, BUN is 3, creatinine 0.8, and his stool studies which I was looking for. C. diff is negative. Cryptosporidium not detected. Giardia not detected. ASSESSMENT AND PLAN: It is probably viral etiology. His CD4 count is 342, so he may continue to take his medications and his urine culture had lactobacillus species which most likely is contaminant, but we will repeat it if it is real. Penicillin is the drug of choice, but he is already on Cipro, and I do not want to give 2 drugs, as he is already having diarrhea. So, we will repeat it, and if it reoccurs, then we will worry about it. Bolivar Villalpando MD
[2017-10-10] MEDS: Ciprofloxacin 400mg/200ml D5W 400 MG/200 ML BAG IVPB SCH (06:14)
--- NOTE | 2017-10-10 07:09 | CP.PCM.PN ---
Subjective - Date & Time of Evaluation Date of Evaluation: 10/10/17 Time of Evaluation: 07:09 Objective - Vital Signs/Intake and Output Vital Signs (last 24 hours): Temp Pulse Resp BP Pulse Ox 98.0 F 72 20 100/63 99 10/10/17 00:00 10/10/17 00:00 10/10/17 00:00 10/10/17 00:00 10/10/17 00:00 Intake and Output: 10/10/17 10/10/17 06:59 18:59 Intake Total 1040 Balance 1040 - Medications Medications: Current Medications Acetaminophen (Tylenol 325mg Tab) 650 mg PO Q6 PRN PRN Reason: Fever >100.4 F Escitalopram Oxalate (Lexapro) 10 mg PO DAILY [facility] Home Med (Patient's Own Medication) 1 tab PO DAILY [facility] Last Admin: 10/09/17 13:47 Dose: 1 tab Sodium Chloride (Sodium Chloride 0.9%) 1,000 mls @ 100 mls/hr IV .Q10H [facility] Last Admin: 10/09/17 22:23 Dose: Not Given Ciprofloxacin (Cipro 400mg/200ml Dsw) 400 mg in 200 mls @ 133 mls/hr IVPB Q12H [facility] Last Admin: 10/10/17 06:14 Dose: 133 mls/hr Metronidazole (Flagyl) 250 mg in 50 mls @ 100 mls/hr IVPB Q8H [facility] Stop: 10/13/17 01:01 Last Admin: 10/10/17 00:02 Dose: 100 mls/hr Ketorolac Tromethamine (Toradol) 15 mg IVP Q6 PRN PRN Reason: Pain, moderate (4-7) Pantoprazole Sodium (Protonix Ec Tab) 40 mg PO DAILY [facility] Last Admin: 10/09/17 11:15 Dose: 40 mg Quetiapine Fumarate (Seroquel) 100 mg PO HS [facility] Last Admin: 10/09/17 22:23 Dose: 100 mg Saccharomyces Boulardii (Florastor) 250 mg PO BID [facility] Last Admin: 10/09/17 18:36 Dose: 250 mg - Labs Labs: 10/09/17 07:33 10/09/17 07:33
[2017-10-10 07:24] LABS: BASO % 0.6 % (0.0-2.0); EOS # 0.1 K/uL (0.0-0.7); EOS % 2.1 % (0.0-4.0); HEMOGLOBIN 12.7 g/dL (12.0-18.0); LYMPH # 1.7 K/uL (1.0-4.3); LYMPH % 39.4 % (20.0-40.0); MEAN CELL VOLUME 91.5 fL (80.0-94.0); MEAN CORPUSCULAR HEMOGLOBIN 31.8 pg (27.0-31.0); MEAN CORPUSCULAR HGB CONC 34.7 g/dL (33.0-37.0); MONO # 0.5 K/uL (0.0-0.8); MONO % 10.7 % (0.0-10.0); NEUT # 2.1 K/uL (1.8-7.0); NEUT % 47.2 % (50.0-75.0); NRBC % 0.1 % (0.0-2.0); WHITE BLOOD COUNT 4.4 K/uL (4.8-10.8)
[2017-10-10 08:08] LABS: ALBUMIN 2.8 g/dL (3.5-5.0); ALT/SGPT 20 U/L (21-72); AST/SGOT 21 U/L (17-59); BLOOD UREA NITROGEN 5 mg/dL (9-20); CALCIUM 7.2 mg/dl (8.6-10.4); GFR AFRICAN-AMERICAN > 60; GFR NON-AFRICAN AMERICAN > 60
[2017-10-10] MEDS ORDERED: Potassium Chloride 20 mEq ER Tab PO STA (09:16)
[2017-10-10 09:44] VITALS: BP 91/58; PULSE 70; TEMP 98.2
[2017-10-10] MEDS: Sodium Chloride 0.9% 1,000 ML IV SCH (10:16)
[2017-10-10] MEDS: Pantoprazole 40 mg EC Tab PO SCH (10:19)
[2017-10-10] MEDS: Elviteg/Cobi/Emtric/Tenofo Dis [Stribild Tablet] PO SCH (10:19)
[2017-10-10] MEDS: Saccharomyces Boulardi 250 mg Cap PO SCH (10:20)
--- NOTE | 2017-10-10 11:15 | PCM.PYCHPN ---
Psychiatric Progress Note - Psychiatric Progress Note Patient seen today, length of contact: 17 min Patient Chief Complaint: "I had flashbacks" Problems Identified/Issues Discussed: The pt is seen, chart reviewed, case discussed with staff. The pt is compliant with medications and reports no side-effects. Symptoms are improving but needs to continue tx outside, he said he would arrange and go but he needs to check with his PO to see if there is a warrant for his arrest or not. After care discussed, support and psychoeducation given. Flashbacks are rare and he is used to them, No SI or HI Cleared for d/c Diagnostic Results: Urine Cx: + lactobacillus C.Diff Ag and toxin: negative CD4 count: 342 L Medication Change: No Medical Record Reviewed: Yes Mental Status Examination - Cognitive Function Orientation: Person, Place, Situation, Time Memory: Intact Attention: WNL Association: WN Fund of Knowledge: WN - Mood Mood: Depressed, Anxious - Affect Affect: Constricted - Speech Speech: Appropriate - Formal Thought Process Formal Thought Process: No Impairment - Suicidal Ideation Suicidal Ideation: No - Homicidal Ideation Homicidal Ideation: No Goal/Treatment Plan - Goal/Treatment Plan Progress Toward Problem(s) and Goals/Treatment Plan: Pt denies suicidal thoughts. States he is feeling better and once he receives medical clearance would like to go home. He refused psych admission but also seems to have improved and has no acute issue. He has chronic conditions, ie PTSD and Personality d/o, which will become issues continuously if he does not receive good therapy and regular med use. He understood and verbalized agreement with going to an [facility] ([facility]) and psych.
--- NOTE | 2017-10-10 12:12 | CP.PCM.DIS ---
Provider - Provider Date of Admission: 10/07/17 15:06 Attending physician: Israel Huitron MD Primary care physician: [facility] in [place], [place] Consults: ID: Dr. Villalpando Psychiatry: Dr. Castro Time Spent in preparation of Discharge (in minutes): 45 Hospital Course - Lab Results Lab Results: Micro Results 10/07/17 11:02 Stool Stool Culture - Final NO SALMONELLA, SHIGELLA OR CAMPYLOBACTER ISOLATED. 10/07/17 12:00 Blood Blood Culture - Preliminary NO GROWTH AFTER 48 HOURS 10/07/17 11:30 Blood Blood Culture - Preliminary NO GROWTH AFTER 48 HOURS 10/07/17 11:04 Urine Urine Culture - Final Lactobacillus Species Most Recent Lab Values WBC 4.4 K/uL (4.8-10.8) L 10/10/17 07:03 RBC 4.00 Mil/uL (4.40-5.90) L 10/10/17 07:03 Hgb 12.7 g/dL (12.0-18.0) 10/10/17 07:03 Hct 36.6 % (35.0-51.0) 10/10/17 07:03 MCV 91.5 fL (80.0-94.0) 10/10/17 07:03 MCH 31.8 pg (27.0-31.0) H 10/10/17 07:03 MCHC 34.7 g/dL (33.0-37.0) 10/10/17 07:03 RDW 12.0 % (11.5-14.5) 10/10/17 07:03 Plt Count 275 K/uL (130-400) 10/10/17 07:03 MPV 9.0 fL (7.2-11.7) 10/10/17 07:03 Neut % (Auto) 47.2 % (50.0-75.0) L 10/10/17 07:03 Lymph % (Auto) 39.4 % (20.0-40.0) 10/10/17 07:03 [place] % (Auto) 10.7 % (0.0-10.0) H 10/10/17 07:03 Eos % (Auto) 2.1 % (0.0-4.0) 10/10/17 07:03 Baso % (Auto) 0.6 % (0.0-2.0) 10/10/17 07:03 Neut # (Auto) 2.1 K/uL (1.8-7.0) 10/10/17 07:03 Lymph # (Auto) 1.7 K/uL (1.0-4.3) 10/10/17 07:03 [place] # (Auto) 0.5 K/uL (0.0-0.8) 10/10/17 07:03 Eos # (Auto) 0.1 K/uL (0.0-0.7) 10/10/17 07:03 Baso # (Auto) 0.0 K/uL (0.0-0.2) 10/10/17 07:03 Neutrophils % (Manual) 84 % (50-75) H 10/07/17 11:35 Band Neutrophils % 2 % (0-2) 10/07/17 11:35 Lymphocytes % (Manual) 8 % (20-40) L 10/07/17 11:35 Monocytes % (Manual) 6 % (0-10) 10/07/17 11:35 Platelet Estimate Normal (NORMAL) 10/07/17 11:35 RBC Morphology Normal 10/07/17 11:35 Sodium 138 mmol/L (132-148) 10/10/17 07:03 Potassium 3.3 mmol/L (3.6-5.2) L 10/10/17 07:03 Chloride 104 mmol/L (98-107) 10/10/17 07:03 Carbon Dioxide 25 mmol/L (22-30) 10/10/17 07:03 Anion Gap 11 (10-20) 10/10/17 07:03 BUN 5 mg/dL (9-20) L 10/10/17 07:03 Creatinine 0.7 mg/dL (0.8-1.5) L 10/10/17 07:03 Est GFR ( Amer) > 60 10/10/17 07:03 Est GFR (Non-Af Amer) > 60 10/10/17 07:03 Random Glucose 98 mg/dL (75-110) 10/10/17 07:03 Calcium 7.2 mg/dl (8.6-10.4) L 10/10/17 07:03 Phosphorus 2.8 mg/dL (2.5-4.5) 10/08/17 08:33 Magnesium 2.0 mg/dL (1.6-2.3) 10/08/17 08:33 Total Bilirubin 0.2 mg/dL (0.2-1.3) 10/10/17 07:03 AST 21 U/L (17-59) 10/10/17 07:03 ALT 20 U/L (21-72) L 10/10/17 07:03 Alkaline Phosphatase 38 U/L (38-126) 10/10/17 07:03 Total Protein 5.6 g/dL (6.3-8.3) L 10/10/17 07:03 Albumin 2.8 g/dL (3.5-5.0) L 10/10/17 07:03 Globulin 2.8 gm/dL (2.2-3.9) 10/10/17 07:03 Albumin/Globulin Ratio 1.0 (1.0-2.1) 10/10/17 07:03 Lipase 111 U/L (23-300) 10/07/17 12:06 Urine Color Yellow (YELLOW) 10/07/17 10:50 Urine Clarity Hazy (Clear) 10/07/17 10:50 Urine pH 5.0 (5.0-8.0) 10/07/17 10:50 Ur Specific [place] 1.029 (1.003-1.030) 10/07/17 10:50 Urine Protein 1+ mg/dL (NEGATIVE) H 10/07/17 10:50 Urine Glucose (UA) Normal mg/dL (Normal) 10/07/17 10:50 Urine Ketones Negative mg/dL (NEGATIVE) 10/07/17 10:50 Urine Blood 1+ (NEGATIVE) H 10/07/17 10:50 Urine Nitrate Negative (NEGATIVE) 10/07/17 10:50 Urine Bilirubin Negative (NEGATIVE) 10/07/17 10:50 Urine Urobilinogen 2.0 mg/dL (0.2-1.0) 10/07/17 10:50 Ur Leukocyte Esterase 1+ Bharati/uL (Negative) H 10/07/17 10:50 Urine WBC (Auto) 22 /hpf (0-5) H 10/07/17 10:50 Urine RBC (Auto) 21 /hpf (0-3) H 10/07/17 10:50 Ur Squamous Epith Cells 1 /hpf (0-5) 10/07/17 10:50 Urine Bacteria Rare (<OCC) 10/07/17 10:50 Stool Leukocytes, Qual Negative (NEGATIVE) 10/07/17 19:38 Stl Cryptosporidium Ag Not detected (Not detected) 10/07/17 19:38 Urine Opiates Screen Negative (NEGATIVE) 10/07/17 10:50 Urine Methadone Screen Negative (NEGATIVE) 10/07/17 10:50 Ur Barbiturates Screen Negative (NEGATIVE) 10/07/17 10:50 Ur Phencyclidine Scrn Negative (NEGATIVE) 10/07/17 10:50 Ur Amphetamines Screen Positive (NEGATIVE) H 10/07/17 10:50 U Benzodiazepines Scrn Negative (NEGATIVE) 10/07/17 10:50 U Oth Cocaine Metabols Negative (NEGATIVE) 10/07/17 10:50 U Cannabinoids Screen Negative (NEGATIVE) 10/07/17 10:50 Alcohol, Quantitative < 10 mg/dl (0-10) 10/07/17 12:06 Absolute Lymphs (Flow) 1192 Cells/mcL (850-3900) 10/08/17 08:33 % CD4 Cells 29 Percent (30-61) L 10/08/17 08:33 Absolute CD4 Count 342 Cells/mcL (490-1740) L 10/08/17 08:33 T-Help/Suppress Ratio 0.50 Ratio (0.86-5.00) L 10/08/17 08:33 % CD8 Cells 57 Percent (12-42) H 10/08/17 08:33 Absolute CD8 Count 678 Cells/mcL (180-1170) 10/08/17 08:33 C. difficile Ag & Toxin Negative (NEGATIVE) 10/07/17 11:03 Cryptosp/Giardia Source Stool 10/07/17 19:38 Giardia Antigen Not detected (Not Detected) 10/07/17 19:38 - Hospital Course Hospital Course: CC: abdominal pain with diarrhea HPI: 31 year old male with past medical history significant for HIV (diagnosed in 2013), Hx of suicidal ideations with a plan, PTSD, Depression and anxiety presents with concerns of abdominal pain which he has been experiencing for the past 7 days. Patient states that the pain has been accompanied with watery diarrhea as well. He states that the stool is yellowish-brown in nature. He states that yesterday, he noticed what appeared to be blood in the toilet bowl. He was concerned that his diarrhea symptoms did not hillary, and thus he came in to be seen. Patient states that he has been eating foods at home. He states the foods have been mostly oily, but he has been able to tolerate a diet. He specifically denies eating any new foods or taking any new medications in the days leading up to the beginning of his symptoms. He admits to a subjective fever on one occasion. He denies nausea, vomiting, chest pain, constipation, headaches, urinary urgency, dysuria, hematuria, urinary hesitancy or paresthesias, recent travel outside the country or recent exposure to sick contacts at this time. Of additional note, patient expressed wanting to harm himself. Patient states that he does not have a plan at the moment. He has a history of attempting suicide by siding down 15 floors of a banister on one attempt. He mentioned trying to choke himself on another attempt. 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 In the ED, labs were drawn, imaging was done and medications were given. An abdomen obstructive series showed no evidence of infiltrate or bowel obstruction but was positive for stool retention. Abdomen/ Pelvis CT showed thickening of the rectosigmoid colon wall indicative of possible colitis. Patient was started on Ciprofloxacin and Falgyl in the ED for treatment of infectious colitis and was given Toradol for pain. Patient had a fever on admission and was given Tylenol in the ED. Patient reports no diarrhea stool studies have shown no growth including C. Diff, Giardia, and Cryptosporidum. Urinalysis was performed and showed 1+ protein, 1+ blood, 1+ leukocyte esterase and was positive for WBCs and RBCs. Urine culture was positive for Lactobacillus. Infectious disease was consulted and recommended follow up urine culture since initial culture may have been contaminated. Repeat culture results are pending and patient must follow results with their PMD at [facility] in [place], [place]. Patient also has a PMH of HIV which was diagnosed in 2013. Patient reports he was told that his CD4 count was in the 500s in June of 2017, but testing here showed CD4 count of 342. Patient takes Stribild for HIV and was restarted on the medication in the hospital. Patient also reported suicidal ideations and has a PMH of Depression. Psychiatry was consulted and patient was started on Seroquel and Lexapro. He reports no suicidal thoughts currently. Patient currently reports feeling better and has no complaints. Patient is stable for discharge to home as per medical, infectious disease, and psychiatry team. Patient must continue to take antibiotics and new medications as prescribed. Patient must follow up with PMD at [facility] in [place], [place] within one week of discharge. This is a summary of the medical course, please see the medical records for a more detailed course. Discharge Exam - Head Exam Head Exam: ATRAUMATIC, NORMAL INSPECTION, NORMOCEPHALIC - Eye Exam Eye Exam: EOMI, Normal appearance - ENT Exam ENT Exam: Mucous Membranes Moist - Respiratory Exam Respiratory Exam: Clear to PA & Lateral, NORMAL BREATHING PATTERN, UNREMARKABLE. absent: Rales, Rhonchi, Wheezes, Respiratory Distress - Cardiovascular Exam Cardiovascular Exam: REGULAR RHYTHM, +S1, +S2 - GI/Abdominal Exam GI & Abdominal Exam: Normal Bowel Sounds, Soft, Unremarkable. absent: Distended , Firm, Tenderness - Extremities Exam Extremities exam: normal inspection - Neurological Exam Neurological exam: Alert, Oriented x3 - Psychiatric Exam Psychiatric exam: Normal Affect, Normal Mood - Skin Skin Exam: Dry, Intact, Normal Color, Warm Discharge Plan - Discharge Medications Prescriptions: Ciprofloxacin HCl [Cipro] 500 mg PO BID 7 Days #14 tablet Escitalopram [Lexapro] 10 mg PO DAILY #30 tab Metronidazole [Flagyl] 500 mg PO BID 7 Days #14 tab QUEtiapine [Seroquel] 100 mg PO HS #30 tab Saccharomyces Boulardi [Florastor] 250 mg PO BID #60 cap - Follow Up Plan Condition: STABLE Disposition: HOME/ ROUTINE Additional Instructions: Patient is stable for discharge to home. Patient must continue home medications. Patient must stop taking Zoloft. Patient is to take new medications as prescribed: 1. Ciprofloxacin 500mg PO BID x7days: take one tablet by mouth twice a day for 7 days 2. Flagyl 500mg PO BID x7days: take one tablet by mouth twice a day for 7 days 3. Florastor 250mg PO BID: take one tablet by mouth twice a day 4. Seroquel 100mg PO HS: take one tablet by mouth at night 5. Lexapro 10mg PO daily: take one tablet by mouth daily [Prescriptions sent electronically to patient's pharmacy] Patient must follow up with PMD within one week of discharge. If symptoms reoccur or worsen, patient should return to the ED.
== END 2017-10-10 14:55 | disposition home or self-care (01) | DRG 714 ==
LOC: C.ER 10:11 → C.9E 15:06 → C.3T 21:11
PROVIDERS: ADMIT Internal Medicine; ATTEND Internal Medicine
DX: B20 Human immunodeficiency virus [HIV] disease (principal); A09 Infectious gastroenteritis and colitis, unspecified; R45.851 Suicidal ideations; F33.2 Major depressive disorder, recurrent severe without psychotic features; F15.20 Other stimulant dependence, uncomplicated; N39.0 Urinary tract infection, site not specified; E78.00 Pure hypercholesterolemia, unspecified; F17.210 Nicotine dependence, cigarettes, uncomplicated; F43.10 Post-traumatic stress disorder, unspecified; Z59.0 Homelessness; Z62.810 Personal history of physical and sexual abuse in childhood

== ENCOUNTER 2018-03-02 16:35 | Emergency (ER) | payer MEDICAID, OTHER, SELFPAY ==
[2018-03-02 16:36] VITALS: BMI 21.2
[2018-03-02 16:58] VITALS: RESP 18
[2018-03-02] MEDS ORDERED: Sodium Chloride 0.9% 1,000 ML IV ONE (17:41)
[2018-03-02] MEDS ORDERED: Lidocaine 2% Inj (20ml) INFIL ONE (17:42)
[2018-03-02] MEDS ORDERED: Vancomycin 1 gm/NS 200 ml 1 GM/200 ML BAG IVPB STA (17:43)
--- NOTE | 2018-03-02 17:44 | C.PDOC ---
History Of Present Illness <Velvet Lloyd - Last Filed: 03/02/18 19:02> <Elizabeth Gillespie - Last Filed: 03/02/18 21:52> 32 yo male w/PMHx of HIV come in for evaluation of Left buttock painful mass gradually developed for past 3-4 days. For past few days noted some draining. Otherwise, denies fever, chills, known direct trauma or injury, abd. pain, V/D, change in BM, back pain, UTI sx. Ambulate to Ed for evaluation, not in nay apparent distress. (Velvet Lloyd) History Per: Patient <Velvet Lloyd - Last Filed: 03/02/18 19:02> <Elizabeth Gillespie - Last Filed: 03/02/18 21:52> Time Seen by Provider: 03/02/18 17:07 Chief Complaint (Nursing): Abnormal Skin Integrity Past Medical History Reviewed: Historical Data, Nursing Documentation, Vital Signs - Medical History PMH: Anxiety, Depression, HIV, Post Traumatic Stress Disorder Denies: Diabetes, Hepatitis, HTN, Chronic Kidney Disease, Seizures, Sexually Transmitted Disease Family History: States: No Known Family Hx - Social History Hx Alcohol Use: No Hx Substance Use: Yes (methamphetamine) - Immunization History Hx Tetanus Toxoid Vaccination: No Hx Influenza Vaccination: No Hx Pneumococcal Vaccination: No <GabinoVelvet - Last Filed: 03/02/18 19:02> Vital Signs: Last Vital Signs Temp 98.2 F 03/02/18 16:54 Pulse 105 H 03/02/18 16:54 Resp 18 03/02/18 16:54 BP 117/78 03/02/18 16:54 Pulse Ox 100 03/02/18 19:04 - [facility] GROUP PSYCHOTHERAPY (07/02/17) INDIVIDUAL PSYCHOTHERAPY, COGNITIVE-BEHAVIORAL (07/02/17) INDIVIDUAL PSYCHOTHERAPY, SUPPORTIVE (07/02/17) Review Of Systems Except As Marked, All Systems Reviewed And Found Negative. Constitutional: Negative for: Fever, Chills ENT: Positive for: Throat Pain. Negative for: Ear Discharge, Nose Discharge, Throat Swelling Cardiovascular: Negative for: Chest Pain, Palpitations Respiratory: Negative for: Cough, Shortness of Breath, Wheezing Gastrointestinal: Negative for: Nausea, Vomiting, Abdominal Pain, Diarrhea, Melena, Hematochezia, Hematemesis Genitourinary: Negative for: Incontinence Musculoskeletal: Negative for: Neck Pain, Back Pain Skin: Positive for: Lesions Neurological: Negative for: Weakness, Numbness <Velvet Lloyd - Last Filed: 03/02/18 19:02> Physical Exam - Physical Exam Appears: Well, Non-toxic, No Acute Distress Skin: Normal Color, Warm, Dry, No Rash, Other (Left gluteal temder erythematous mass 3#4 cm, (+) flactualnce, (+) purulent discharges. No proximal streaking.) Head: Normacephalic Eye(s): bilateral: PERRL Nose: No Flaring, No Discharge Oral Mucosa: Moist, No Drooling Tongue: Normal Appearing Lips: Normal Appearing Throat: No Erythema, No Drooling Neck: Trachea Midline, Supple Cardiovascular: Rhythm Regular Respiratory: No Decreased Breath Sounds, No Accessory Muscle Use, No Stridor, No Wheezing Gastrointestinal/Abdominal: Soft, No Tenderness, No Distention, No Guarding Rectal: Rectal Tone (normal) Back: No CVA Tenderness Extremity: Normal ROM, No Deformity, No Swelling Neurological/Psych: Oriented x3, Normal Speech <Velvet Lloyd - Last Filed: 03/02/18 19:02> ED Course And Treatment - Laboratory Results Result Diagrams: 03/02/18 18:53 O2 Sat by Pulse Oximetry: 100 <Velvet Lloyd - Last Filed: 03/02/18 19:02> - Laboratory Results Result Diagrams: 03/02/18 18:53 03/02/18 18:53 <Elizabeth Gillespie - Last Filed: 03/02/18 21:52> - Incision & Drainage Of Abscess Anesthesia: Lidocaine 2% Prep Used: Betadine Procedure: Incised W/Scalpel Blade#: (11), Drained Pus, Irrigated Cavity W/ Saline, Probed To Break Up Loculations, Packed W/Gauze, Cultures Obtained And Sent To Lab <Velvet Lloyd - Last Filed: 03/02/18 19:02> Disposition - Disposition Disposition Time: 19:03 <Velvet Lloyd - Last Filed: 03/02/18 19:02> Discussed With : Josue Hardwick Comment: accepted the pt on his service and took over the care at 9:48PM Doctor Will See Patient In The: Hospital Counseled Patient/Family Regarding: Studies Performed, Diagnosis - POA Present On Arrival: None <Elizabeth Gillespie - Last Filed: 03/02/18 21:52> - Disposition Disposition: HOSPITALIZED Condition: FAIR Forms: [facility] (Setswana) - Clinical Impression Clinical Impression: Perirectal abscess Physician Patient Turnover Patient Signed Over To: Elizabeth Gillespie Handoff Comments: CT abd/pelvis, abx tx, re-eval, dispo <Velvet Lloyd - Last Filed: 03/02/18 19:02> Decision To Admit <Velvet Lloyd - Last Filed: 03/02/18 19:02> - Pt Status Changed To: Hospital Disposition Of: Inpatient - Admit Certification Admit to Inpatient:: After my assessment, the patient will require hospitalization for at least two midnights. This is because of the severity of symptoms shown, intensity of services needed, and/or the medical risk in this patient being treated as an outpatient. - InPatient: Physician Admission Certification: I certify that this patient requires 2 or more midnights of care for the following reason:: After my assessment, the patient will require hospitalization for at least two midnights. This is because of the severity of symptoms shown, intensity of services needed, and/or the medical risk in this patient being treated as an outpatient. - . Bed Request Type: Regular Admitting Physician: Josue Hardwick <Elizabeth Gillespie - Last Filed: 03/02/18 21:52> - . Patient Diagnosis: Perirectal abscess
[2018-03-02] MEDS ORDERED: Lidocaine 2% MPF (5 ml) Inj ONE (18:13)
[2018-03-02 18:58] LABS: BASO # 0.1 K/uL (0.0-0.2); BASO % 0.5 % (0.0-2.0); EOS # 0.1 K/uL (0.0-0.7); EOS % 0.9 % (0.0-4.0); HEMOGLOBIN 14.3 g/dL (12.0-18.0); LYMPH # 1.9 K/uL (1.0-4.3); LYMPH % 16.1 % (20.0-40.0); MEAN CELL VOLUME 91.2 fL (80.0-94.0); MEAN CORPUSCULAR HEMOGLOBIN 30.2 pg (27.0-31.0); MEAN CORPUSCULAR HGB CONC 33.1 g/dL (33.0-37.0); MEAN PLATELET VOLUME 8.3 fL (7.2-11.7); MONO # 0.7 K/uL (0.0-0.8); MONO % 5.8 % (0.0-10.0); NEUT # 9.2 K/uL (1.8-7.0); NEUT % 76.7 % (50.0-75.0); RBC 4.75 Mil/uL (4.40-5.90); RED CELL DISTRIBUTION WIDTH 12.6 % (11.5-14.5)
[2018-03-02 19:01] LABS: WHITE BLOOD COUNT 11.9 K/uL (4.8-10.8)
[2018-03-02 19:10] LABS: BLOOD UREA NITROGEN 14 mg/dL (9-20); CALCIUM 9.2 mg/dl (8.6-10.4); GFR AFRICAN-AMERICAN > 60; GFR NON-AFRICAN AMERICAN > 60
[2018-03-02] MEDS ORDERED: Iodixanol 320 MG/ML 100 ML BOTTLE IV ONE (20:09)
[2018-03-02 22:54] VITALS: BP 130/73; PULSE 110; TEMP 99.1; O2SAT 99
--- NOTE | 2018-03-03 00:23 | CP.PCM.CON ---
History of Present Illness - History of Present Illness History of Present Illness: SURGERY CONSULT NOTE FOR DR. MEDINA Past Patient History - Past Medical History & Family History Past Medical History?: Yes - Past Social History Smoking Status: Light Smoker < 10 Cigarettes Daily - CARDIAC Hx Hypertension: No - PULMONARY Hx Respiratory Disorders: No Hx Tuberculosis: No - NEUROLOGICAL Hx Seizures: No - HEENT Hx HEENT Problems: No - RENAL Hx Chronic Kidney Disease: No - ENDOCRINE/METABOLIC Hx Endocrine Disorders: No - HEMATOLOGICAL/ONCOLOGICAL Hx Human Immunodeficiency Virus (HIV): Yes - INTEGUMENTARY Hx Dermatological Problems: No - MUSCULOSKELETAL/RHEUMATOLOGICAL Hx Musculoskeletal Disorders: No Hx Falls: No - GASTROINTESTINAL Hx Gastrointestinal Disorders: No - GENITOURINARY/GYNECOLOGICAL Hx Sexually Transmitted Disorders: No - PSYCHIATRIC Hx Anxiety: Yes Hx Depression: Yes Hx Post Traumatic Stress Disorder: Yes Hx Substance Use: Yes (methamphetamine) - SURGICAL HISTORY Hx Surgeries: No - ANESTHESIA Hx Anesthesia: No Hx Anesthesia Reactions: No Hx Malignant Hyperthermia: No Meds Allergies/Adverse Reactions: Allergies Allergy/AdvReac Type Severity Reaction Status Date / Time No Known Allergies Allergy Verified 03/02/18 16:58 Results - Vital Signs Recent Vital Signs: Last Vital Signs Temp 99.1 F 03/02/18 22:53 Pulse 110 H 03/02/18 22:53 Resp 18 03/02/18 22:53 BP 130/73 03/02/18 22:53 Pulse Ox 99 03/02/18 22:53 - Labs Result Diagrams: 03/02/18 18:53 03/02/18 18:53 Labs: Laboratory Results - last 24 hr 03/02/18 03/02/18 18:53 18:53 WBC 11.9 H D RBC 4.75 Hgb 14.3 Hct 43.3 MCV 91.2 MCH 30.2 MCHC 33.1 RDW 12.6 Plt Count 336 MPV 8.3 Neut % (Auto) 76.7 H Lymph % (Auto) 16.1 L [place] % (Auto) 5.8 Eos % (Auto) 0.9 Baso % (Auto) 0.5 Neut # (Auto) 9.2 H Lymph # (Auto) 1.9 [place] # (Auto) 0.7 Eos # (Auto) 0.1 Baso # (Auto) 0.1 Sodium 139 Potassium 3.7 Chloride 98 Carbon Dioxide 26 Anion Gap 18 BUN 14 Creatinine 0.8 Est GFR ( Amer) > 60 Est GFR (Non-Af Amer) > 60 Random Glucose 92 Calcium 9.2
--- NOTE | 2018-03-03 08:33 | CT ---
PROCEDURE: CT Abdomen and Pelvis with intravenous contrast HISTORY: rectal pain, abscess COMPARISON: None. TECHNIQUE: Multiple contiguous axial images were performed through the abdomen and pelvis with intravenous contrast. Subsequently, sagittal and coronal reformatted images were obtained. Radiation dose: Total exam DLP = three hundred seven mGy-cm. This CT exam was performed using one or more of the following dose reduction techniques: Automated exposure control, adjustment of the mA and/or kV according to patient size, and/or use of iterative reconstruction technique. FINDINGS: LOWER THORAX: Unremarkable. LIVER: Unremarkable. No gross lesion or ductal dilatation. GALLBLADDER AND BILE DUCTS: Unremarkable. PANCREAS: Unremarkable. No gross lesion or ductal dilatation. SPLEEN: Unremarkable. ADRENALS: Unremarkable. No mass. KIDNEYS AND URETERS: 8 millimeter low-attenuation lesion within the midpole of the right kidney, too small to adequately characterize. VASCULATURE: Unremarkable. No aortic aneurysm. BOWEL: Mild fecal retention in the colon consistent with constipation. APPENDIX: Not clearly identified. PERITONEUM: Unremarkable. No free fluid. No free air. LYMPH NODES: Unremarkable. No enlarged lymph nodes. BLADDER: Unremarkable. REPRODUCTIVE: Unremarkable. BONES: No acute fracture. OTHER FINDINGS: 1.4 x 1.8 cm collection of high attenuation material in the left buttock near midline. IMPRESSION: 1.4 x 1.8 cm collection of high attenuation material in the left buttock near midline. This is concerning for a small rectal fistula tract or abscess containing fecal material and contrast. Correlation with physical findings maybe helpful. Mild fecal retention in the colon consistent with constipation. These findings were preliminarily reported at 9:13 p.m. on 03/02/[address] Hermilo Mann from [employer].
== END 2018-03-02 23:40 | disposition left against medical advice (07) ==
LOC: C.ER 16:35 → UNDOADMIN 21:46 → C.9E 21:46 → C.6T 22:42 → C.9E 22:42 → C.6T 23:40 → C.ER 23:40 → C.9E 23:40 → UNDODISIN 23:45
DX: K61.1 Rectal abscess (principal)
CPT/HCPCS: 46050; 74177; 80048; 85025; 87040; 87070; 87181; 96365; 96366; 96375; 99284; J2270; J3370; J7030; Q9967